=== PATIENT | male | born 1985 | race Caucasian/White ===

== ENCOUNTER 2020-04-13 07:00 | Outpatient (REF) | payer MEDICAID, SELFPAY ==
[2020-04-13 08:08] LABS: Alanine Aminotransferase 35 U/L (0-40); Alkaline Phosphatase 81 U/L (39-117); Anion Gap 11 (12-20); Aspartate Amino Transferase 27 U/L (5-37); Bilirubin Total 0.5 mg/dL (0.0-1.0); Blood Urea Nitrogen 14 mg/dL (9-16); Calcium 8.6 mg/dL (8.4-10.2); Carbon Dioxide 27 mmol/L (22-29); Chloride 106 mmol/L (96-108); Cholesterol 186 mg/dL; Estimated Glomerular Filt Rate > 60; Glucose Fasting 90 mg/dL (60-99); HDL Cholesterol 43 mg/dL; LDL Cholesterol Calculated 128 mg/dl; Potassium 4.1 mmol/L (3.3-5.1); Sodium 140 mmol/L (135-145); Total Protein 7.3 g/dL (6.5-8.0); Triglycerides 79 mg/dL
[2020-04-13 08:17] LABS: Estimated Average Glucose 108 mg/dL; Hemoglobin A1c % 5.4 %
[2020-04-13 08:42] LABS: HBS Num1 2.66 mIU/mL (0-7.99); HBc Num1 0.07 S/CO (0.00-0.79); HBsAGNum1 0.17 S/CO (0.00-0.99); Hepatitis A Antibody IgM 0.17 Index (0-0.79); Hepatitis B Core Antibody Nonreactive (Nonreactive); Hepatitis B Surface Antigen Negative (Negative); ~Hepatitis A Antibody IgM Nonreactive (Nonreactive); ~Hepatitis B Surface Antibody NONREACTIVE (Nonreactive)
[2020-04-13 08:43] LABS: ~HepC Num1 0.13 S/CO (0.00-0.79); ~Hepatitis C Antibody Nonreactive (Nonreactive)
== END 2020-04-13 07:01 | disposition home or self-care (01) ==
LOC: HO.LAB 07:00
PROVIDERS: Visit Provider Internal Medicine
DX: G50.1 Atypical facial pain (principal); R73.01 Impaired fasting glucose; R74.01 Elevation of levels of liver transaminase levels; Z72.0 Tobacco use
CPT/HCPCS: 36415; 80053; 80061; 83036; 86704; 86706; 86709; 86803; 87340

== ENCOUNTER 2020-10-12 13:22 | Emergency (ER) | payer MEDICAID, SELFPAY ==
--- NOTE | ~2020-10-12 | XR_ITS ---
EXAMINATION: XR HAND, LEFT CLINICAL INFORMATION: Laceration. COMPARISON: None TECHNIQUE: PA, lateral, and oblique views of the left hand. FINDINGS: There is laceration along the first web of the left hand but no radiopaque foreign body. No fracture or dislocation. XR/XR hand LT min 3V IMPRESSION: Small laceration along the first web in between the first and second digit. No radiopaque foreign body seen. There is no bony abnormality.
[2020-10-12 14:40] VITALS: BP 137/58; PULSE 74; RESP 16; TEMP 36.2; O2SAT 97; BMI 37.1
--- NOTE | 2020-10-12 15:02 | ED_ITS ---
HPI - Extremity Problem General Chief complaint: Extremity Injury, Upper Stated complaint: wound Source: patient Mode of arrival: ambulatory Limitations: no limitations History of Present Illness HPI Narrative: Patient presents to the ED for left hand laceration. Patient states he was cutting with his knife and cut his hand by accident. Patient has complete range of motion of fingers. Patient denies any other trauma Related Data Allergies Allergy/AdvReac Type Severity Reaction Status Date / Time aspirin [ASPIRIN] Allergy Unknown ITCHING, Unverified 11/24/19 18:34 swelling SEAFOOD Allergy Severe ANAPHYLAXIS Uncoded 11/24/19 18:34 Review of Systems Review of Systems: Yes all other systems are reviewed and are negative Constitutional: Constitutional: Reports as per HPI and Reports no additional constitutional complaints Eyes: Eyes: Reports as per HPI and Reports no additional eye complaints ENT: Reports system reviewed and no additional complaints, except as documented and Reports as per HPI Cardiovascular: Cardiovascular: Reports as per HPI and Reports no additional cardiovascular complaints Respiratory: Respiratory: Reports as per HPI and Reports no additional respiratory complaints Gastrointestinal: Gastrointestinal: Reports as per HPI and Reports no additional gastrointestinal complaints Musculoskeletal: Musculoskeletal: Reports no additional musculoskeletal complaints and Reports as per HPI Comments: Left hand laceration [facility] Past Medical History Medical History (Updated 10/12/20 @ 16:34 by BUBBA White) No known health problems Social History Social History Advance Directives: No Advance Directives Information Provided: No Physical Exam Vital Signs: Vital Signs: Last Vital Signs Temp 97.1 F 10/12/20 14:40 Pulse 74 10/12/20 14:40 Resp 16 10/12/20 14:40 BP 137/58 L 10/12/20 14:40 Pulse Ox 97 10/12/20 14:40 Body Mass Index 37.1 Const: General: cooperative, healthy appearing, comfortable, no acute distre ss, well developed, alert, awake and Physically active Orientation/consciousness: patient oriented x3 HENMT: Head: Yes normal to inspection, Yes No palpable skull fracture present, Yes normocephalic, Yes atraumatic and No abrasion Eyes: General: appearance normal, both eyes and all related structures Neck: Neck: Yes normal visual inspection, Yes full ROM, Yes no lymphadenopathy, Yes no meningeal signs, Yes trachea midline, Yes supple and No tender Chest: Chest palpation & inspection: normal inspection of the chest and normal palpation of entire chest wall Resp: Effort & Inspection: normal respiratory effort and able to speak in complete sentences Cardio: Jugular venous distension: no JVD Heart sounds: S1 normal heart sound present and S2 normal heart sound present GI: Inspection: Yes normal to inspection and No abdominal wall ecchymosis Palpation (GI): Soft to palpation, not firm, nontender, no guarding and not rigid : General: No CVA tenderness and Yes no CVA tenderness Back/Spine/Pelvis: Back: no CVA tenderness, No CVA tenderness and No back tenderness Skin: General skin exam: no rashes or lesions noted and elasticity normal Neuro: General: patient oriented x3, gait normal, no meningeal signs and CN's II-XI intact bilaterally Cranial nerves: Yes CN's II-XII intact bilaterally Extrem: General: Yes normal to inspection and Yes full ROM Hand/finger images: 1. Superficial laceration. Patient complete range of motion thumb and all fingers. Capillary refills intact. Motor/neuro/vascular exam is intact. Psych: Appearance: grossly normal, well kempt and not disheveled Course Course Course Narrative: Hand laceration Reevaluation(s) Reevaluation #1: Wound clean sterile saline and Betadine iodine. 5 mL of lidocaine 2% was used for anesthesia. Size 4 nylon sutures were used. Three stitches were placed. Patient given Tdap injection Discharge Plan Discharge Clinical Impression: Hand laceration Patient Disposition: Home, Self-Care Instructions: Laceration (ED) Additional Instructions: Return to the ED for any swelling, redness, pus discharge, foul odor, fever, chills, or any other concerning symptoms. Getting [id number] Tylenol for pain relief. Sutures should be removed in 9 days in this ED. if you develop numbness/tingling please follow-up with hand surgeon. Keep wound dry the 1st 48 hours. Referrals: Richelle Metcalf MD [Physician] - 2 days (Hand laceration. Numbness/tingling of thumb. Complete range of motion. Negative for tendon injury. ) Stand Alone Forms: Work/School Release Interventions: ED Discharge Assessment Last Done: 10/12/20 16:56 Discharge Date/Time: 10/12/20 16:58 Print Language: Citizen Of [place]
[2020-10-12] MEDS: Diphth,Pertus(ACell),Tet Adult 0.5 ML SYRINGE IM (15:16)
[2020-10-12] MEDS: Lidocaine HCl 2 % MPF 5 ML VIAL INFILTRATI ×2 (15:17)
== END 2020-10-12 16:58 | disposition home or self-care (01) ==
PROVIDERS: Emergency Provider Emergency Medicine Emergency Medical Services; PCP Internal Medicine
DX: S61.412A Laceration without foreign body of left hand, initial encounter (principal); W26.0XXA Contact with knife, initial encounter; Y93.9 Activity, unspecified; Y92.9 Unspecified place or not applicable; Y99.9 Unspecified external cause status
CPT/HCPCS: 12001; 73130; 90471; 90715; 99283; 99284

== ENCOUNTER 2020-10-21 17:51 | Emergency (ER) | payer MEDICAID, SELFPAY ==
[2020-10-21 17:56] VITALS: BP 121/64; PULSE 80; RESP 18; TEMP 36.9; O2SAT 100; BMI 35.5
== END 2020-10-21 20:37 | disposition left against medical advice (07) ==
PROVIDERS: Emergency Provider Emergency Medicine; PCP Internal Medicine
DX: Z48.02 Encounter for removal of sutures (principal)
CPT/HCPCS: 99282

== ENCOUNTER 2021-10-18 07:30 | Outpatient (REF) | payer MEDICAID, SELFPAY ==
[2021-10-18 07:51] LABS: MANUAL DIFF FLAG NO
[2021-10-18 08:10] LABS: Basophils Percent Auto 0.3 % (0-2); Eosinophils Absolute Auto 0.2 X10*3/uL (0.0-0.4); Eosinophils Percent Auto 3.6 % (0-4); Hematocrit 41.5 % (42.0-52.0); Hemoglobin 14.4 g/dl (14.0-18.0); Imm Gran Abs Auto 0.01 X10*3/uL (0.00-0.03); Imm Gran Pct Auto 0.2 % (0.0-0.4); Lymphocytes Absolute Auto 1.9 X10*3/uL (1.2-4.9); Lymphocytes Percent Auto 31.5 % (20-40); Mean Corpuscular HGB Conc 34.7 g/dl (31.0-36.0); Mean Corpuscular Hemoglobin 29.9 pg (27.0-33.0); Mean Corpuscular Volume 86.1 fL (80.0-98.0); Mean Platelet Volume 9.5 fL (9.4-12.4); Monocytes Absolute Auto 0.6 X10*3/uL (0.1-1.2); Monocytes Percent Auto 9.3 % (2-11); Neutrophils Absolute Auto 3.4 x10*3/uL (2.0-8.3); Neutrophils Percent Auto 55.1 % (45-73); Platelet Count 219 X10*3/uL (160-400); Red Blood Count 4.82 X10*6/uL (4.60-5.80); Red Cell Distribution Width 11.8 % (11.0-16.0); White Blood Count 6.1 X10*3/uL (4.8-10.8)
[2021-10-18 08:15] LABS: Estimated Average Glucose 108 mg/dL; Hemoglobin A1c % 5.4 %
[2021-10-18 08:22] LABS: Alanine Aminotransferase 24 U/L (0-40); Albumin Level 4.2 g/dL (3.5-5.0); Alkaline Phosphatase 85 U/L (39-117); Anion Gap 15 (12-20); Aspartate Amino Transferase 25 U/L (5-37); Bilirubin Total 0.7 mg/dL (0.0-1.0); Blood Urea Nitrogen 13 mg/dL (9-16); Calcium 9.1 mg/dL (8.4-10.2); Carbon Dioxide 26 mmol/L (22-29); Chloride 103 mmol/L (96-108); Cholesterol 179 mg/dL; Estimated Glomerular Filt Rate > 60; Glucose Random 96 mg/dL (60-115); HDL Cholesterol 35 mg/dL; LDL Cholesterol Calculated 126 mg/dl; Potassium 4.8 mmol/L (3.3-5.1); Sodium 139 mmol/L (135-145); Total Protein 7.5 g/dL (6.5-8.0); Triglycerides 92 mg/dL
[2021-10-18 08:42] LABS: Ferritin 177 ng/mL (20-250)
[2021-10-18 12:25] LABS: CT PCR NOT DETECTED (Not Detect.); NG PCR NOT DETECTED (Not Detect.)
== END 2021-10-18 07:31 | disposition home or self-care (01) ==
LOC: HO.LAB 07:30
PROVIDERS: PCP Internal Medicine; Visit Provider Internal Medicine
DX: Z00.00 Encounter for general adult medical examination without abnormal findings (principal); Z11.3 Encounter for screening for infections with a predominantly sexual mode of transmission; R74.01 Elevation of levels of liver transaminase levels; R73.01 Impaired fasting glucose; L29.1 Pruritus scroti; H81.11 Benign paroxysmal vertigo, right ear
CPT/HCPCS: 80053; 80061; 82728; 83036; 84443; 85025; 87491; 87591

== ENCOUNTER 2022-03-29 11:06 | Emergency (ER) | payer MEDICAID, SELFPAY ==
--- NOTE | ~2022-03-29 | CT_ITS ---
CT HEAD WITHOUT IV CONTRAST INDICATION: Rule out fracture/bleed. COMPARISON: None available. TECHNIQUE: Multidetector CT acquisitions of the head was obtained without IV contrast. This CT examination was performed using dose optimization techniques as appropriate, variously including the following: *Automated exposure control *Adjustment of mA and/or kV according to patient size (this includes techniques or standardized protocols for targeted exams where dose is matched to indication/reason for exam; i.e. extremities or head) *Use of iterative reconstruction technique FINDINGS: There is no intracranial hemorrhage, hydrocephalus, extra-axial surface collection, midline shift, or other herniation pattern. Romo to white matter differentiation is diffusely maintained without evidence of an evolved acute territorial infarct. The basilar cisterns are preserved. Anterior left frontal scalp hematoma. No fracture. CT/CT head/brain wo IV con IMPRESSION: No acute intracranial findings. Anterior left frontal scalp hematoma. No fracture.
--- NOTE | 2022-03-29 11:17 | ED_ITS ---
HPI - Head Injury General Chief complaint: Head Injury <Lissette Ramon CNP - Last Filed: 03/29/22 11:19> Stated complaint: head inj <Lissette Ramon CNP - Last Filed: 03/29/22 11:19> Time Seen by Provider: 03/29/22 11:27 <Lissette Ramon CNP - Last Filed: 03/29/22 11:19> History of Present Illness HPI Narrative: Patient complains of headache and dizziness after accidentally hitting himself with a heavy piece of metal when he was trying to free it up in the left side of his forehead He had no loss of consciousness but did feel dazed and very quickly developed of global headache, was briefly nauseous, but is now nauseous no vomiting no confusion, no retrograde amnesia he remembers everything no dizziness now no fainting no feeling faint no numbness or weakness or tingling no neck pain, no other injury, he did not fall and did not injure his back or extremities <BUBBA Wylie - Last Filed: 03/29/22 14:29> Related Data Home medications: Previous Rx's Medication Instructions Recorded acetaminophen 500 mg capsule 1,000 mg PO TID PRN pain #20 caps 03/29/22 oxycodone 5 mg tablet 5 mg PO Q6H PRN pain #10 tabs 03/29/22 <Lissette Ramon CNP - Last Filed: 03/29/22 11:19> Allergies/Adverse reactions: Allergies Allergy/AdvReac Type Severity Reaction Status Date / Time aspirin [ASPIRIN] Allergy Unknown ITCHING, Unverified 11/24/19 18:34 swelling SEAFOOD Allergy Severe ANAPHYLAXIS Uncoded 11/24/19 18:34 <Lissette Ramon CNP - Last Filed: 03/29/22 11:19> FOR[facility]LY [facility] Past Medical History Source: nursing notes reviewed <BUBBA Wylie - Last Filed: 03/29/22 14:29> Medical History: Medical History (Updated 03/29/22 @ 13:18 by BUBBA Wylie) No known health problems <Lissette Ramon CNP - Last Filed: 03/29/22 11:19> Social History Social History: Social History Alcohol intake: current Alcohol intake frequency: holidays/special occasions only Smoked in Last 30 Days: Yes Use of substances other than those prescribed or required for medical reasons: No Advance Directives: No Advance Directives Information Provided: No <Lissette Leewanda Ramon CNP - Last Filed: 03/29/22 11:19> Physical Exam Vital Signs: Vital Signs: Last Vital Signs Temp 98.0 F 03/29/22 13:06 Pulse 68 03/29/22 13:06 Resp 14 03/29/22 13:06 BP 107/40 L 03/29/22 13:06 Pulse Ox 100 03/29/22 13:06 O2 Del Method 03/29/22 13:06 BMI result Body Mass Index 35.5 <Lissette Kendrawanda Ramon CNP - Last Filed: 03/29/22 11:19> Vital Signs: Last Vital Signs Temp 98.0 F 03/29/22 13:06 Pulse 68 03/29/22 13:06 Resp 14 03/29/22 13:06 BP 107/40 L 03/29/22 13:06 Pulse Ox 100 03/29/22 13:06 O2 Del Method 03/29/22 13:06 BMI result Body Mass Index 35.5 <BUBBA Wylie - Last Filed: 03/29/22 14:29> General appearance is no acute distress The head there is a large hematoma on the left side of the forehead which is very tender, this is abraded but not lacerated There is no hemotympanum Pupils equal round reactive to light extraocular motions are intact No raccoon eyes no Jim signs The neck is supple and nontender Respiratory no distress Chest wall is nontender Extremities full range of motion x4 Neuro gait and balance are normal, interaction comprehension and expression are normal, motor is 5/5 x4, sensation intact and symmetrical, cerebellar exam is normal, cranial nerves 2-12 intact as tested <BUBBA Wylie - Last Filed: 03/29/22 14:29> Course Course Course Narrative: This is an RME: Additional HPI, ROS, PE not included below will be deferred to primary provider. 36-year-old male presents emergency department for evaluation of head injury. States that 20 minutes prior to arrival he was working on his car when he sustained an injury. States he hit himself in the head with a crowbar. Has a hematoma present to the left frontal scalp line. No anticoagulants usage. Denies loss of consciousness. Has mild associated nausea. No focal neurological defecits <Lissette Ramon CNP - Last Filed: 03/29/22 11:19> This is an RME: Additional HPI, ROS, PE not included below will be deferred to primary provider. 36-year-old male presents emergency department for evaluation of head injury. States that 20 minutes prior to arrival he was working on his car when he sustained an injury. States he hit himself in the head with a crowbar. Has a hematoma present to the left frontal scalp line. No anticoagulants usage. Denies loss of consciousness. Has mild associated nausea. No focal neurological defecits Head CT was negative Patient's headache was relieved with analgesics No progression of symptoms during ER visit and pain was improved and well- appearing patient ambulating easily without neurologic deficit was discharged <BUBBA Wylie - Last Filed: 03/29/22 14:29> Medications Administered Discontinued Medications Generic Name Dose Route Start Last Admin Trade Name Freq PRN Reason Stop Dose Admin Acetaminophen 975 mg 03/29/22 11:38 03/29/22 11:43 Acetaminophen 325 Mg Tablet PO 03/29/22 11:39 975 mg ONCE ONE Administration Oxycodone HCl 5 mg 03/29/22 13:00 03/29/22 13:04 Oxycodone Hcl Immed Release 5 Mg Tablet PO 03/29/22 13:01 5 mg ONCE ONE Administration <Lissette Ramon CNP - Last Filed: 03/29/22 11:19> Medications Administered Discontinued Medications Generic Name Dose Route Start Last Admin Trade Name Freq PRN Reason Stop Dose Admin Acetaminophen 975 mg 03/29/22 11:38 03/29/22 11:43 Acetaminophen 325 Mg Tablet PO 03/29/22 11:39 975 mg ONCE ONE Administration Oxycodone HCl 5 mg 03/29/22 13:00 03/29/22 13:04 Oxycodone Hcl Immed Release 5 Mg Tablet PO 03/29/22 13:01 5 mg ONCE ONE Administration <BUBBA Wylie - Last Filed: 03/29/22 14:29> Discharge Plan Discharge Clinical Impression: Traumatic hematoma of forehead <Lissette Ramon CNP - Last Filed: 03/29/22 11:19> Patient Disposition: Home, Self-Care <Lissette Ramon CNP - Last Filed: 03/29/22 11:19> Additional Instructions: CT scan was normal no sign of any dangerous injury If needed you could use pain medicine Return any time any worse condition or any concerns <Lissette Ramon CNP - Last Filed: 03/29/22 11:19> Prescriptions: New acetaminophen 500 mg capsule 1,000 mg PO TID PRN (Reason: pain) Qty: 20 0RF oxycodone 5 mg tablet 5 mg PO Q6H PRN (Reason: pain) Qty: 10 0RF Rx Instructions: Partial Fill upon patient request. <Lissette Ramon CNP - Last Filed: 03/29/22 11:19> Interventions: ED Discharge Assessment Last Done: 03/29/22 13:25 <Lissette Ramon CNP - Last Filed: 03/29/22 11:19> Discharge Date/Time: 03/29/22 13:27 <Lissette Ramon CNP - Last Filed: 03/29/22 11:19>
[2022-03-29 11:19] VITALS: BP 138/84; PULSE 83; RESP 18; TEMP 36.9; O2SAT 98; BMI 35.5
[2022-03-29] MEDS: Acetaminophen 325 MG TABLET 975 MG PO (11:43)
[2022-03-29] MEDS: oxyCODONE HCl Immed Release 5 MG TABLET PO (13:04)
[2022-03-29 13:06] VITALS: BP 107/40; PULSE 68; RESP 14; TEMP 36.7; O2SAT 100
== END 2022-03-29 13:27 | disposition home or self-care (01) ==
PROVIDERS: Emergency Provider Emergency Medicine; PCP Internal Medicine
DX: S00.83XA Contusion of other part of head, initial encounter (principal); W20.8XXA Other cause of strike by thrown, projected or falling object, initial encounter; Y93.89 Activity, other specified; Y92.019 Unspecified place in single-family (private) house as the place of occurrence of the external cause; Y99.9 Unspecified external cause status
CPT/HCPCS: 70450; 99284

== ENCOUNTER 2022-08-07 07:52 | Emergency (ER) | payer MEDICAID, SELFPAY ==
--- NOTE | ~2022-08-07 | XR_ITS ---
EXAMINATION: XR CHEST CLINICAL INFORMATION: Shortness of breath. Cough. Fever. COMPARISON: Chest x-ray 07/26/2018 TECHNIQUE: 2 views of the chest were obtained. FINDINGS: Cardiac silhouette is normal in size. The lungs are well aerated. There is no lobar consolidation. No pleural effusion or pneumothorax. XR/XR chest 2V IMPRESSION: No acute pulmonary pathology.
[2022-08-07 07:58] VITALS: BP 108/73; PULSE 99; RESP 18; TEMP 36.6; O2SAT 94; BMI 36.9
[2022-08-07 08:22] VITALS: BP 128/73; PULSE 86; RESP 16; TEMP 37.3; O2SAT 95
--- NOTE | 2022-08-07 08:42 | ED_ITS ---
HPI - SOB/Dyspnea General Chief Complaint: Upper Respiratory Symptoms Stated Complaint: Cough/Fever/Chest tightness Time Seen by Provider: 08/07/22 08:10 Source: patient and family Mode of arrival: ambulatory Limitations: no limitations History of Present Illness HPI Narrative: 36-year-old male presents to the ER for evaluation of 3 days of shortness of breath, chest tightness, cough, chest congestion, runny nose, headaches and subjective fevers. He presents to the ER with his who has similar symptoms. He has no pulmonary history, not a smoker. He states he has chest and back pain when he coughs. He is not bringing up any phlegm. He denies any chest pain at rest. No nausea, vomiting, diarrhea, abdominal pain. He did not test for COVID at home. MD elicited complaint: shortness of breath, cough and pain with inspiration Onset (ago): day(s) (3) Timing: progressively worsening Severity: moderate Exacerbating factors: coughing Relieving factors: nothing Associated symptoms: chest pain, fever, cough and chest congestion Treatment prior to arrival: none Related Data Home oxygen amount: none Previous Rx's Medication Instructions Recorded acetaminophen 500 mg capsule 1,000 mg PO TID PRN pain #20 caps 03/29/22 oxycodone 5 mg tablet 5 mg PO Q6H PRN pain #10 tabs 03/29/22 benzonatate 100 mg capsule 100 mg PO TID PRN cough #30 caps 08/07/22 guaifenesin 1,200 mg tablet, 1,200 mg PO BID #14 tabs 08/07/22 extended release 12 hr (Mucinex) prednisone 20 mg tablet 40 mg PO DAILY #10 tabs 08/07/22 Allergies Allergy/AdvReac Type Severity Reaction Status Date / Time aspirin [ASPIRIN] Allergy Unknown ITCHING, Verified 08/07/22 07:58 swelling SEAFOOD Allergy Severe ANAPHYLAXIS Uncoded 11/24/19 18:34 Review of Systems Review of Systems: Yes all other systems are reviewed and are negative FORMERLY [facility] Past Medical History Medical History (Updated 08/08/22 @ 00:02 by Background Daemon) No known health problems Social History Social History Alcohol intake: current Alcohol intake frequency: does not drink Smoked in Last 30 Days: No Use of substances other than those prescribed or required for medical reasons: No Advance Directives: No Advance Directives Information Provided: Yes Physical Exam Vital Signs: Vital Signs: Last Vital Signs Temp 99.2 F 08/07/22 08:22 Pulse 86 08/07/22 08:22 Resp 16 08/07/22 08:22 BP 128/73 08/07/22 08:22 Pulse Ox 95 08/07/22 08:22 O2 Del Method Room Air 08/07/22 08:22 BMI result Body Mass Index 36.9 Appearance: Alert. Oriented X3. No acute distress. Head: normocephalic, atraumatic. Eyes: Pupils equal, round and reactive to light. ENT: Pharynx normal. No tonsillar swelling or exudate. Neck: Normal inspection. Neck supple. CVS: Normal heart rate and rhythm. Pulses normal. Respiratory: No respiratory distress. Breath sounds normal. Abdomen: Soft and nontender. +BS x4 Skin: Skin warm and dry. Normal skin color. Normal skin turgor. No rashes. Extremities: No lower extremity edema. No joint swelling. Neuro/psych: Oriented X 3. No motor deficit. No sensory deficit. CN II-XII intact. Normal speech and cognition. Medical Decision Making Medical Decision Making [facility] Narrative: 36 yo male presentin with URI symptoms w/ cough. VSS. CXR clear. COVID negative. likely other viral syndrome. stable for d/c home with antitussive and supportive care. Differential Diagnosis Differential Diagnoses: The differential diagnosis associated with the p resentation includes covid, flu, rsv, pneumonia, bronchitis, other viral syndrome Lab Data [facility] Lab Attestation statement: I reviewed the patient's lab results. Labs: Lab Results 08/07/22 Range/Units 08:20 COVID-19 (JUANA) Negative (Negative) COVID-19 Clin Com See Note Independent Interpretation I performed an independent interpretation of an: Plain X-Ray Interpretation: clear lungs, no pna Radiology Impression Discussion of test interpretation with radiology: I have reviewed the radiologis t's reading. Radiologist Impression: XR/XR chest 2V IMPRESSION: No acute pulmonary pathology. Independent Historian Clinical information obtained from an independent historian. History obtained from or confirmed by: Spouse External Record Review External record reviewed: Outpatient record and Prior outpatient labs Prescription Management I considered prescription management with: Antibiotic Critical Care Time Critical Care Time Critical Care Time: No Discharge Plan Discharge Clinical Impression: Bronchitis Patient Disposition: Home, Self-Care Instructions: Acute Bronchitis (ED) Additional Instructions: You tested negative for COVID-19. Your chest x-ray was normal. Your most likely suffering from another viral respiratory infection. Take the prescribed steroid medication to help with inflammation in your lungs. Take the prescribed cough medication as needed. Rest and drink plenty of fluid. Take [id number] cold and flu medications as needed for your symptoms. Follow-up with primary care doctor. If you develop new or worsening symptoms call 911 or come back to the ER for further evaluation. Prescriptions: New prednisone 20 mg tablet 40 mg PO DAILY Qty: 10 0RF benzonatate 100 mg capsule 100 mg PO TID PRN (Reason: cough) Qty: 30 0RF Mucinex 1,200 mg tablet extended release 12hr 1,200 mg PO BID Qty: 14 0RF No Action acetaminophen 500 mg capsule 1,000 mg PO TID PRN (Reason: pain) Qty: 20 0RF oxycodone 5 mg tablet 5 mg PO Q6H PRN (Reason: pain) Qty: 10 0RF Rx Instructions: Partial Fill upon patient request. Referrals: Saray Roger MD [Primary Care Provider] - Stand Alone Forms: Work/School Release Interventions: ED Discharge Assessment Last Done: 08/07/22 09:33 Discharge Date/Time: 08/07/22 09:34
[2022-08-07 08:43] LABS: COVID-19 Test Negative (Negative); IDNOW Serial# BCCEAD1C
== END 2022-08-07 09:34 | disposition home or self-care (01) ==
PROVIDERS: Physician Assistant; Emergency Provider Emergency Medicine Emergency Medical Services; PCP Internal Medicine
DX: J40 Bronchitis, not specified as acute or chronic (principal); R05.9 Cough, unspecified; R07.89 Other chest pain; Z20.822 Contact with and (suspected) exposure to COVID-19; Z20.828 Contact with and (suspected) exposure to other viral communicable diseases; Z79.899 Other long term (current) drug therapy
CPT/HCPCS: 71046; 87635; 99283; 99284

== ENCOUNTER → 2022-11-13 14:35 | Outpatient (BNVA) | payer OTHER, SELFPAY | PROVIDERS: PCP Internal Medicine; Visit Provider Physician Assistant Medical | DX: Z13.89 Encounter for screening for other disorder (principal) | CPT/HCPCS: 99203 ==

== ENCOUNTER → 2022-11-17 08:26 | Outpatient (BNVA) | payer OTHER, SELFPAY | PROVIDERS: PCP Internal Medicine; Visit Provider Physician Assistant Medical | DX: Z13.89 Encounter for screening for other disorder (principal) | CPT/HCPCS: 99213 ==

== ENCOUNTER 2023-12-03 06:13 | Outpatient (REF) | payer OTHER, SELFPAY ==
[2023-12-03 06:23] LABS: MANUAL DIFF FLAG NO
[2023-12-03 06:56] LABS: Estimated Average Glucose 120 mg/dL; Hemoglobin A1c % 5.8 % (<6.0)
[2023-12-03 07:03] LABS: Alanine Aminotransferase 43 U/L (0-40); Alkaline Phosphatase 81 U/L (39-117); Anion Gap 11 (12-20); Aspartate Amino Transferase 29 U/L (5-37); Basophils Percent Auto 0.3 % (0-2); Bilirubin Total 0.5 mg/dL (0.0-1.0); Blood Urea Nitrogen 14 mg/dL (9-16); Calcium 9.5 mg/dL (8.4-10.2); Carbon Dioxide 29 mmol/L (22-29); Chloride 105 mmol/L (96-108); Cholesterol 190 mg/dL (<200); Eosinophils Absolute Auto 0.1 X10*3/uL (0.0-0.4); Eosinophils Percent Auto 1.9 % (0-4); Estimated Glomerular Filt Rate > 60; Glucose Random 104 mg/dL (60-115); HDL Cholesterol 43 mg/dL (>40); Hematocrit 40.2 % (42.0-52.0); Hemoglobin 13.9 g/dl (14.0-18.0); Imm Gran Abs Auto 0.03 X10*3/uL (0.00-0.03); Imm Gran Pct Auto 0.4 % (0.0-0.4); LDL Cholesterol Calculated 123 mg/dL (<100); Lymphocytes Absolute Auto 2.4 X10*3/uL (1.2-4.9); Lymphocytes Percent Auto 35.5 % (20-40); Mean Corpuscular HGB Conc 34.6 g/dl (31.0-36.0); Mean Corpuscular Hemoglobin 29.8 pg (27.0-33.0); Mean Corpuscular Volume 86.1 fL (80.0-98.0); Mean Platelet Volume 9.2 fL (9.4-12.4); Monocytes Absolute Auto 0.7 X10*3/uL (0.1-1.2); Monocytes Percent Auto 9.9 % (2-11); Neutrophils Absolute Auto 3.6 x10*3/uL (2.0-8.3); Platelet Count 238 X10*3/uL (160-400); Potassium 4.5 mmol/L (3.3-5.1); Red Blood Count 4.67 X10*6/uL (4.60-5.80); Red Cell Distribution Width 11.6 % (11.0-16.0); Sodium 140 mmol/L (135-145); Total Protein 7.8 g/dL (6.5-8.0); Triglycerides 122 mg/dL (<150); White Blood Count 6.9 X10*3/uL (4.8-10.8)
[2023-12-03 07:17] LABS: TSH reflex Free T4 1.36 uIU/mL (0.32-4.0)
== END 2023-12-03 06:14 | disposition home or self-care (01) ==
LOC: HO.LAB 06:13
PROVIDERS: PCP Internal Medicine; Visit Provider Internal Medicine
DX: Z00.01 Encounter for general adult medical examination with abnormal findings (principal); I10 Essential (primary) hypertension; M75.42 Impingement syndrome of left shoulder; R07.89 Other chest pain; R21 Rash and other nonspecific skin eruption; R73.01 Impaired fasting glucose
CPT/HCPCS: 36415; 80053; 80061; 83036; 84443; 85025

== ENCOUNTER → 2023-12-29 13:55 | Outpatient (BNVA) | payer OTHER, SELFPAY | PROVIDERS: PCP Internal Medicine; Visit Provider Physician Assistant Medical | DX: Z13.89 Encounter for screening for other disorder (principal) | CPT/HCPCS: 99213 ==

== ENCOUNTER → 2024-01-12 14:12 | Outpatient (BNVA) | payer OTHER, SELFPAY | PROVIDERS: PCP Internal Medicine; Visit Provider Physician Assistant Medical | DX: Z13.89 Encounter for screening for other disorder (principal) | CPT/HCPCS: 99213 ==

== ENCOUNTER 2024-07-25 06:05 | Outpatient (REF) | payer OTHER, SELFPAY ==
[2024-07-25 07:55] LABS: Alanine Aminotransferase 39 U/L (0-40); Albumin Level 4.2 g/dL (3.5-5.0); Alkaline Phosphatase 90 U/L (39-117); Anion Gap 12 (12-20); Aspartate Amino Transferase 31 U/L (5-37); Bilirubin Total 0.7 mg/dL (0.0-1.0); Blood Urea Nitrogen 23 mg/dL (9-16); Calcium 9.6 mg/dL (8.4-10.2); Carbon Dioxide 27 mmol/L (22-29); Chloride 105 mmol/L (96-108); Estimated Glomerular Filt Rate > 60; Glucose Random 83 mg/dL (60-115); Potassium 4.6 mmol/L (3.3-5.1); Sodium 139 mmol/L (135-145); Total Protein 7.9 g/dL (6.5-8.0)
== END 2024-07-25 06:06 | disposition home or self-care (01) ==
LOC: HO.LAB 06:05
PROVIDERS: PCP Internal Medicine; Visit Provider Internal Medicine
DX: B35.1 Tinea unguium (principal); I10 Essential (primary) hypertension; R74.01 Elevation of levels of liver transaminase levels; Z68.36 Body mass index [BMI] 36.0-36.9, adult
CPT/HCPCS: 36415; 80053

== ENCOUNTER 2025-02-01 06:41 | Emergency (ER) | payer OTHER, SELFPAY ==
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
[2025-02-01 06:49] VITALS: BP 130/90; BP 137/89; PULSE 66; PULSE 82; RESP 18; TEMP 36.8; O2SAT 96; O2SAT 98; BMI 36.3
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
[2025-02-01 08:29] VITALS: BP 130/76; PULSE 70; RESP 18; O2SAT 96
[2025-02-01 08:39] VITALS: BP 130/76; PULSE 70; RESP 18; TEMP 36.6; O2SAT 96
== END 2025-02-01 08:40 | disposition home or self-care (01) ==
PROVIDERS: Emergency Provider Emergency Medicine; PCP Internal Medicine
DX: S13.4XXA Sprain of ligaments of cervical spine, initial encounter (principal); V49.40XA Driver injured in collision with unspecified motor vehicles in traffic accident, initial encounter; Y93.9 Activity, unspecified; Y92.410 Unspecified street and highway as the place of occurrence of the external cause; Y99.9 Unspecified external cause status; Z88.6 Allergy status to analgesic agent; Z91.013 Allergy to seafood
CPT/HCPCS: 70450; 71046; 72125; 99284

== ENCOUNTER → 2025-02-01 07:22 | Outpatient (BNV) | payer OTHER, SELFPAY | PROVIDERS: Emergency Provider Emergency Medicine; PCP Internal Medicine; Visit Provider Radiology Diagnostic Radiology | DX: M54.2 Cervicalgia (principal); R59.0 Localized enlarged lymph nodes; E04.1 Nontoxic single thyroid nodule; S00.93XA Contusion of unspecified part of head, initial encounter; V89.9XXA Person injured in unspecified vehicle accident, initial encounter; S20.211A Contusion of right front wall of thorax, initial encounter | CPT/HCPCS: 70450; 71046; 72125 ==